=== PATIENT | female | born 1995 | race Caucasian/White ===

== ENCOUNTER 2016-06-14 03:19 | Emergency (ER) | payer BC, OTHER ==
[~2016-06-14] VITALS: Ht 160 cm; Wt 68.0 kg
[2016-06-14] MEDS ORDERED: NS 1,000 ML IV ONE (06:00)
[2016-06-14] MEDS ORDERED: diphenhydrAMINE INJ 50MG/ML VIAL (J1200) IV ONE (06:00)
[2016-06-14] MEDS ORDERED: KETOROLAC 30 MG/ML VIAL (J1885) IV ONE (06:00)
[2016-06-14] MEDS ORDERED: METOCLOPRAMIDE INJ 10MG/2ML VIAL (J2765) IV ONE (06:00)
[2016-06-14 07:24] VITALS: BP 114/57
== END 2016-06-14 07:33 | disposition home or self-care (01) ==
LOC: M ED 04:30
DX: G43.909 Migraine, unspecified, not intractable, without status migrainosus (principal); E03.9 Hypothyroidism, unspecified; Z88.0 Allergy status to penicillin; Z88.1 Allergy status to other antibiotic agents; Z88.8 Allergy status to other drugs, medicaments and biological substances
CPT/HCPCS: 36415; 96374; 96375; 99282; J1200; J1885; J2765